=== PATIENT | female | born 1975 | race Caucasian/White ===

== ENCOUNTER 2025-07-11 18:25 | Emergency (ER) | payer OTHER ==
[~2025-07-11] VITALS: Ht 160 cm; Wt 84.5 kg
[2025-07-11 18:34] VITALS: BP 172/91; PULSE 92; RESP 16; TEMP 98; O2SAT 99
--- NOTE | 2025-07-11 19:20 | ELECTROCARDIOGRAPH REPORT ---
[facility] Test Date: 2025-07-11 Test Time: 18:30:12 Pat Name: RIANA ARELLANO Department: EMERGENCY ROOM [id number] Room: Gender: F [employer] Assistant: CUAUHTEMOC : 1975 Requested By: SANJIV LEAVITT Order Number: [id number] Reading MD: Dr. Karel Stephenson Measurements Intervals Farrell Rate: 94 P: 58 NM: 143 QRS: 28 QRSD: 95 T: 57 QT: 362 QTc: 453 Interpretive Statements Sinus rhythm Probable left atrial enlargement Low voltage, precordial leads Baseline wander in lead(s) I Electronically Signed On 07-13-2025 11:17:[address] Karel Stephenson Please click the below link to view image of tracing.
[2025-07-11 19:51] LABS: MEAN PLATELET VOLUME 8.2 FL (7.4-10.4); RED CELL DISTRIBUTION WIDTH 13.4 % (11.5-14.5)
[2025-07-11 20:06] LABS: CREATININE 0.76 MG/DL (0.40-0.90); PRO BRAIN NATRIURETIC PEPTIDE 87 PG/ML (0-125); TOTAL CARBON DIOXIDE 29.9 MMOL/L (24-32); eCRCL 74 ML/MIN; eGFR 81 ML/MIN
--- NOTE | 2025-07-11 20:21 | RADIOLOGY REPORT ---
EXAM: DI CHEST,SINGLE VIEW CLINICAL HISTORY: CP TECHNIQUE: Single PA view of the chest WID: COMPARISON: None FINDINGS: Lines and tubes: None Chest: The heart size and pulmonary vasculature is within normal limits. No pleural effusion, pneumothorax, or consolidation. The osseous structures are grossly intact. IMPRESSION: 1. No acute cardiopulmonary abnormality.
--- NOTE | 2025-07-11 21:33 | Physician Documentation ---
History of Present Illness ~ Chief Complaint: Palpitations Stated Complaint: HEART FLUTTERING Time Seen by MD: 21:32 OK to notify your PCP?: Yes Source: patient Mode of Arrival: POV Exam Limitations: no limitations HPI Patient reports feeling a fluttering sensation in her heart when she was on a hike. She reports that she hikes on a regular basis and this is very abnormal for her. She reports that she has had fluttering sensations in the past which last couple of minutes and go away. But this 1 sustained 5-10 minutes. She reports that her wash was telling her that her heart rate was over 170 which is very abnormal for her. She reports that it was a sudden onset and sudden termination of the tachycardia. She reports that as soon as it stopped she had a heart rate of around 93. There is no family history of rhythm disorders and she has not had a cardiac history. Past Medical History Past Medical History: No Pertinent History Review of Systems All Other Systems at this time: Reviewed and Negative Physical Exam Vital Signs: RN Vital Signs have been reviewed: Yes, Temperature: 98.0, Source: Temporal, Heart Rate: 92, Respiratory Rate: 16, BP: 172/91, Pulse Oximetry: 99, Weight: 84.500 Oxygen Flow Rate: 0 Pulse Oximetry Reflects: adequate oxygenation Progress Results/Orders Results/Orders Orders - HILLARY KENNEY FRAME BENDER Chest,Single View (07/11/25 19:23) Monitor (07/11/25 19:23) Saline Lock (07/11/25 19:23) Oxygen (07/11/25 19:23) Completed Orders - HILLARY KENNEY FRAME BENDER Chest,Single View (07/11/25 19:23) Cbc/Diff (07/11/25 19:23) BMP (07/11/25 19:23) PBNP (07/11/25 19:23) Hs Troponin I W Calculations (07/11/25 19:23) Hs Troponin I W Calculations (07/11/25 21:23) Vital Signs 07/11/25 18:34 Temp 98.0 Pulse 92 Resp 16 B/P (MAP) 172/91 Pulse Ox 99 O2 Flow Rate 0 Laboratory Tests Test 07/11/25 19:33 07/11/25 21:29 White Blood Count 8.7 Red Blood Count 4.62 Hemoglobin 14.2 Hematocrit 41.6 Mean Corpuscular Volume 89.9 Mean Corpuscular Hemoglobin 30.8 Mean Corpuscular Hemoglobin Concent 34.2 Red Cell Distribution Width 13.4 Platelet Count 235 Mean Platelet Volume 8.2 Neutrophils (%) (Auto) 71.9 Lymphocytes (%) (Auto) 18.3 L Monocytes (%) (Auto) 7.5 Eosinophils (%) (Auto) 1.9 Basophils (%) (Auto) 0.4 Neutrophils # (Auto) 6.3 Lymphocytes # (Auto) 1.6 Monocytes # (Auto) 0.7 Eosinophils # (Auto) 0.2 Basophils # (Auto) 0.0 CBC Comment Sodium Level 142 Potassium Level 4.4 Chloride Level 108 H Carbon Dioxide Level 29.9 Anion Gap 4 L Blood Urea Nitrogen 23 H Creatinine 0.76 Estimated GFR/1.73 m2 81 BUN/Creatinine Ratio 30.3 H Glucose Level 104 Calcium Level 9.3 Troponin I High Sensitivity 6 6 Pro-B-Type Natriuretic Peptide 87 Albumin 4.0 Chemistry Comments Troponin I High Sens Percent Delta 0 Troponin I Hi Sens Absolute Change 0 EKG/XRAY/CT/US/VASC/MRI EKG : Additional Comment Electrocardiogram: as interpreted by me; normal sinus rhythm, no axis deviation, no acute ischemia, normal intervals, no pre-excitation pattern. Rate: 94 Chest X-Ray : Additional Comments Chest x-ray: as interpreted by me; no large effusion, no large infiltrate, normal mediastinum. Heart Score: Heart Score Response (Comments) Value History Slightly Suspicious 0 EKG Normal 0 Age 45-64 1 Risk Factors No known risk factors 0 Troponin Normal limit 0 Total 1 Medical Decision Making Additional information obtaine: family Findings Had episode of fast heart rate while she was hiking with sudden onset and termination. Currently asymptomatic. Cardiac workup negative, EKG normal, troponins negative and chest x-ray normal. We discussed the symptoms of SVT as well as vagal maneuvers to try should this happen. We discussed that she needs to follow up with her regular doctor and possibly see a wellness rn for further testing such as a an event heart monitor. Patient is requesting to be discharged on does not want to be admitted for further evaluation and cardiac workup. Differential Dx:Considerations: Include: angina / SD, atrial dysrhythmia, atrial fibrillation, atrial flutter, PSVT, sinus tachycardia, WPW, 3rd degree AV block, PVCs Differential Dx:Considerations: Include electrolyte disorder, Include heart failure Departure Disposition: 01 HOME / SELF CARE / HOMELESS Impression: Primary Impression: Palpitations Condition: Stable Discharge Instructions: Palpitations, [id number] Additional Instructions: Follow up with her regular doctor within the next week. You may benefit from a Holter monitor or Zio patch to look for any rhythm abnormalities. Today your cardiac workup was reassuring. We discussed how to perform the Valsalva maneuver should this happen again. Return back here for any new or worsening symptoms. Referrals: NO PRIMARY CARE PROVIDER (PCP) Education Educated: Patient Educated regarding: diagnosis, treatment, prognosis, need for follow up Additional Comment Medical Screen Exam This patient recieved a medical screening examination. After reviewing the individual's medical complaints with presenting symptoms and performing an appropriate physical examination, it was determined that no immediate life- threatening emergency medical condition is present. This individual is also not a women having contractions. Signature Scribe Signature: . Attestation: Scribed for Hillary Kenneyp by Hillary Hankins NP . 07/12/25 01:59 Parts of this note were created using [employer] voice recognition software program. While efforts were made to correct any mistakes made by this voice recognition software program, nonsensical phrases may remain in this note. In addition, there may be errors and syntax, grammar, content and spelling. HILLARY KENNEYP Jul 11, 2025 21:33
== END 2025-07-11 22:57 | disposition home or self-care (01) ==
LOC: ER 18:26
DX: R00.2 Palpitations (principal)
CPT/HCPCS: 36415; 71045; 80048; 83880; 84484; 85025; 93005; 99285